=== PATIENT | female | born 1930 | race Caucasian/White ===

== ENCOUNTER 2018-02-16 12:31 | Outpatient (CLI) | payer MEDICARE ==
[~2018-02-16 12:31] MED LIST: ISOVUE-370 76%-LOCM 1 ML ONE
--- NOTE | 2018-02-16 14:11 | CT ---
CT ABDOMEN AND PELVIS WITHOUT AND WITH CONTRAST: Comparison: 06-13-14 History: Recurrent urinary tract infections. Technique: Multiple contiguous axial images were obtained in a CT of the abdomen and pelvis without a nd with IV contrast. Coronals were performed. Post contrast images were performed in the nephrographi c and expiratory phases. FINDINGS: The patient has bilateral hip prostheses which produce streak artifact limiting evaluation of the pel vis. The urinary bladder can only be partially visualized. Scattered diverticula are seen in the colo n. The small bowel is normal in appearance. No free air, free fluid, or stranding changes are seen in the abdomen or visualized portions of the pelvis. There are scattered calcifications in the liver, likely from prior granulomatous disease. The gallbla dder has been removed. The spleen is absent but there is a mass in the left upper quadrant in the abd omen measuring 2.0 cm in size which likely represents a splenial. The adrenal glands, kidneys, and pancreas are unremarkable. There is a large hiatal hernia. No abdominal or pelvic lymphadenopathy are seen. Atherosclerotic calcifications are seen in the aorta. The visualized portions of both ureters are unr emarkable without filling defects. No hydronephrosis is seen. No calculi are seen in either kidney. There is a small fat containing umbilical hernia. The visualized lung bases are unremarkable. Degener ative changes are seen in the spine. IMPRESSION: 1. No focal abnormality of the kidneys or urinary collecting system. Please note that evaluation of t he urinary bladder is limited given the streak artifact from the bilateral hip prostheses. 2. Diverticulosis. 3. 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 4. Large hiatal hernia. POS: [facility]
== END 2018-02-16 12:32 | disposition home or self-care (01) ==
LOC: BICCT 12:31
PROVIDERS: ATTEND Urology
DX: N39.0 Urinary tract infection, site not specified (principal); K57.30 Diverticulosis of large intestine without perforation or abscess without bleeding; K44.9 Diaphragmatic hernia without obstruction or gangrene; Z90.49 Acquired absence of other specified parts of digestive tract; Z96.641 Presence of right artificial hip joint; Z96.642 Presence of left artificial hip joint
CPT/HCPCS: 36415; 74178; 80048

== ENCOUNTER 2018-05-12 08:52 | Outpatient (CLI) | payer MEDICARE ==
--- NOTE | 2018-05-12 10:31 | ULT ---
ABDOMINAL ULTRASOUND: INDICATION: Abdominal pain with vomiting. HISTORY: Surgical history includes cholecystectomy and splenectomy. COMPARISON: Correlation with CT abdomen 02/16/2018. FINDINGS: A few scattered calcified granuloma in the liver are seen. This is confirmed on recent CT. Liver ot herwise unremarkable. The patient is post cholecystectomy and splenectomy. Common bile duct within normal range measured at 6 mm. Pancreas is obscured. Aorta and IVC are obscured. Both kidneys show mild cortical thinning and increased cortical echogenicity. Small cyst in the righ t renal cortex is identified measuring approximately 1.0 cm. This correlates to the recent CT. IMPRESSION: Unremarkable abdominal ultrasound. POS: [facility]
== END 2018-05-12 08:53 | disposition home or self-care (01) ==
LOC: SCSULT 08:52
PROVIDERS: ATTEND Family Medicine
DX: R11.10 Vomiting, unspecified (principal)
CPT/HCPCS: 76700

== ENCOUNTER 2018-06-30 03:10 | Day surgery (SDC) | payer MEDICARE ==
[2018-06-30] MEDS ORDERED: Ondansetron PF 4 MG/2 ML Vial ONE (03:39)
[2018-06-30 03:44] LABS: #Eosinphils 0.1 thou/uL (0.0-0.7); #Lymphocytes 3.2 thou/uL (1.20-3.40); #Monocytes 1.1 thou/uL (0.11-0.59); #Neutrophils 9.5 thou/uL (1.40-6.50); %Basophils 0.1 % (0.0-1.0); %Eosinophils 0.5 % (0.0-10.0); %Monocytes 7.7 % (0.0-10.0); %Neutrophils 68.7 % (42.0-75.0); Hemoglobin 10.4 g/dL (12.0-16.0); Mean Corpuscular HGB CONC 30.8 g/dL (32.0-36.0); Mean Corpuscular Hemoglobin 28.2 pg (27.0-31.0); Mean Corpuscular Volume 91.5 fL (78.0-98.0); Mean Platelet Volume 8.3 fL (7.4-10.4); Platelet Count 536 thou/uL (130-400); RBC Distribution Width 20.1 % (11.5-14.5); Red Blood Cell (RBC) Count 3.69 mill/uL (4.20-5.40); White Blood Cell (WBC) Count 13.8 thou/uL (4.8-10.8)
[2018-06-30 04:04] LABS: ALT (SGPT) Less than 7 U/L (8-55); AST (SGOT) 10 U/L (5-34); Alkaline Phosphatase 104 U/L (40-150); Anion Gap 16 mmol/L (10-20); BUN (Urea Nitrogen) 24 mg/dL (9.8-20.1); Bilirubin, Total 0.2 mg/dL (0.2-1.2); Calc. Creatinine Clearance 0 mL/min (70-130); Calcium 9.9 mg/dL (7.8-10.44); Carbon Dioxide 24 mmol/L (23-31); Chloride 103 mmol/L (98-107); Estimated GFR-MDRD 61; Glucose 145 mg/dL (83-110); Lipase 45 U/L (8-78); Potassium 4.3 mmol/L (3.5-5.1); Sodium 139 mmol/L (136-145)
[2018-06-30 04:13] LABS: Bilirubin Negative (Negative); Blood, Urine Negative (Negative); Clarity CLEAR (Clear); Glucose, Urine (Dipstick) Negative (Negative); Leukocyte Small (Negative); Nitrite Negative (Negative); Protein, Urine (Dipstick) Trace mg/dL (Neg-Trace); Specific Gravity, Urine 1.023 (1.002-1.036); pH, Urine 6.5 (5.0-9.0)
[2018-06-30 04:15] LABS: Bacteria/HPF None Seen HPF (None Seen); RBC/HPF 0-3 HPF (0-3); Squamous Epithelial 0-3 HPF (0-3)
[2018-06-30 04:22] LABS: Pathc Cast-AUWi Flag 3.94 (0-2.49)
[2018-06-30 04:32] LABS: Hyaline Casts/LPF NONE SEEN LPF (0-3 Hyaline); Other Casts/LPF None Seen LPF (0-3 Hyaline)
[2018-06-30] MEDS ORDERED: Morphine 4 MG/ML VIAL ONE (05:19)
[2018-06-30] MEDS ORDERED: Metoprolol Tartrate 5 MG/5 ML VIAL ONE (06:22)
[2018-06-30] MEDS ORDERED: Digoxin 0.5 MG/2 ML AMP ONE (06:33)
--- NOTE | 2018-06-30 07:13 | CT ---
CT ABDOMEN AND PELVIS WITH IV CONTRAST: Date: 06/30/18 INDICATION: History of right upper quadrant abdominal pain. COMPARISON: Prior dated 06/13/14 and 02/16/18. FINDINGS: There is a large hiatal hernia. There is mild bibasilar atelectasis. There is wall thickening involving the distal gastric antrum and duodenum. There is a small collectio n of gas seen in the anterior wall of the distal gastric antrum on image 19 and 20, series 4. There i s free air within the upper abdomen. There is inflammatory stranding surrounding the distal gastric a ntrum and duodenum. Pancreas appears within normal limits. There is a small splenule seen within the left upper quadrant of the abdomen. The spleen has been surgically removed. Gallbladder is surgically absent. There are numerous calcified granuloma within the liver. The kidneys appear within normal limits. There are moderate vascular calcifications involving the abdominopelvic vasculature. There is extensive colonic diverticulosis of the sigmoid colon and ascending colon. There is a mild a mount of retained stool. There is mild free fluid within the pelvis. Beam scattered artifact from patient's hip prosthesis antonio its image detail of the lower pelvis. There is scattered degenerative and osteoarthritic change. IMPRESSION: 1. Findings suspicious for peptic ulcer disease involving the distal gastric antrum and duodenum wit h a full thickness ulceration involving the anterior gastric antrum and with free air in the upper ab domen consistent with perforation. There is mild free fluid in the pelvis. 2. Postsurgical changes of cholecystectomy and splenectomy. 3. Findings of prior granulomatous disease. 4. Large hiatal hernia. 5. Moderate diverticulosis. 6. Other chronic findings as above. Findings were called to Dr. Benitez at 0455 hours on 06/30/18. CODE CR. POS:
[2018-06-30] MEDS ORDERED: cefOXitin Sodium/Dextrose,Iso 2 GM in Premix Bag 1 BAG IVPB SCH (07:45)
--- NOTE | 2018-06-30 08:27 | HP ---
CHIEF COMPLAINT: Perforated peptic ulcer. HISTORY OF PRESENT ILLNESS: The patient is an 88-year-old female. She is a resident at [facility]. She suffers from advanced dementia. Early this morning, she awoke with severe abdominal pain and was transported here to the emergency room. She underwent laboratory and radiologic evaluation per Dr. Benitez. CT scan of the abdomen revealed not only her large chronic hiatal hernia, but also evidence of a perforated peptic ulcer with free air in the upper abdomen. Laboratory studies revealed a mild leukocytosis with a white blood cell count of 13.8, hemoglobin is 10.4, and platelet count is 536. Chemistry panel reveals normal electrolytes. BUN is slightly elevated at 24, creatinine is normal. Lactate is normal. Liver function tests are normal. The patient seems to be resting comfortably now after having been given a small dose of morphine. While she was here in the emergency room, she flipped into atrial fibrillation with rapid ventricular response and had a heart rate in the 140s. She was given Cardizem with normalization of her heart rate and she appeared to flip back in sinus rhythm. PAST MEDICAL HISTORY: Significant for: 1. 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 2. 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 3. Hypothyroidism. 4. Alzheimer dementia. 5. Glaucoma. 6. Hypertension. 7. Depression. 8. History of osteoarthritis. PAST SURGICAL HISTORY: 1. Bilateral knee replacement. 2. Bilateral hip replacement. 3. Cholecystectomy. 4. Open splenectomy. CURRENT MEDICATIONS: 1. Diltiazem. 2. Ferrous fumarate. 3. Fluoxetine. 4. Latanoprost eyedrops. 5. Megace. 6. MiraLAX. 7. Restoril. 8. Synthroid. ALLERGIES: TO PHENERGAN, CODEINE, AND TRAZODONE. PERSONAL AND SOCIAL HISTORY: She is since 2015. She has 4 children, three of whom are still living and two of her daughters are currently at bedside. She has no history of alcohol or tobacco abuse. REVIEW OF SYSTEMS: Otherwise, unremarkable. FAMILY HISTORY: Noncontributory. PHYSICAL EXAMINATION: GENERAL: She is an elderly white female, resting in bed. She did not aroused per conversation at this time. Her daughters tell me that she has poor hearing and likely could not hear my attempts to converse with her. HEAD, EYES, EARS, NOSE, AND THROAT: Unremarkable. NECK: Supple. LUNGS: Clear to auscultation. CARDIAC: Regular rate and rhythm. ABDOMEN: Diffusely tender with guarding. EXTREMITIES: Unremarkable. ASSESSMENT: The patient with perforated peptic ulcer. She has a do not resuscitate order as discussed with both of her daughters. I discussed options, which include surgical repair of the perforation versus nonoperative observation. They preferred to proceed with surgery at this time. They understand that she is at very high risk patient in light of her age and medical condition. They understand that she may not come off the ventilator after surgery. It is quite likely she will need to be in the intensive care unit. They understand the operation that I have discussed with them and agreed to proceed. Job ID: [id number]
[2018-06-30] MEDS ORDERED: Sodium Chloride 0.9% (PF) 10 ML VIAL FS PRN (09:41)
[2018-06-30] MEDS ORDERED: Pantoprazole 40 MG VIAL IVP SCH ×2 (09:45→12:15)
[2018-06-30] MEDS ORDERED: Fluconazole In NaCl,Iso-Osm 200 MG in Premix Bag 1 BAG IVPB SCH (09:45)
[2018-06-30] MEDS ORDERED: Sodium Chloride 0.9% 1,000 ML IV SCH (09:45)
[2018-06-30] MEDS ORDERED: ISOVUE-370 76%-LOCM 1 ML ONE (11:29)
--- NOTE | 2018-06-30 15:21 | PRG ---
DATE OF SERVICE: 06/30/2018 Ms. Knox was initially taken from the emergency room to the Day Surgery Unit with anticipation of proceeding with surgery. Shortly after her third daughter arrived, her family had second thoughts regarding proceeding with surgery. I had several lengthy conversations with all 3 daughters regarding the possibilities of her care with and without surgery. They all understood clearly that it is impossible to predict exactly what her outcome will be with or without surgery. With surgery, she would have a high risk for mortality and morbidity. She might end up long-term ventilated. Without surgery, there is a good chance that she develop sepsis and . It is possible that she would either way, however. After discussing all possibilities and eventualities, in light of her advanced age, her advanced dementia, and her medical problems and poor quality of life, her daughters all decided that they would rather avoid surgery and have her placed in hospice. She already had a do not resuscitate order as outpatient. She had expressed her dissatisfaction with her life as it is now and they all felt comfortable treating her in a nonoperative fashion. I was very supportive of their decision. At this point, I contacted Dr. Winter of the hospitalist service, who involved with the Palliative Care team. From my understanding, a referral to inpatient hospice was made and the patient was able to be discharged the same day to the inpatient hospice facility. I made it clear that if I maybe of any help in any fashion, I would be happy to do so, if they were to contact me. Job ID: [id number]
== END 2018-06-30 14:42 | disposition hospice, home (50) ==
LOC: ERS 03:10 → SDC 08:08
PROVIDERS: ATTEND Specialist
DX: K27.5 Chronic or unspecified peptic ulcer, site unspecified, with perforation (principal); K44.9 Diaphragmatic hernia without obstruction or gangrene; F02.80 Dementia in other diseases classified elsewhere, unspecified severity, without behavioral disturbance, psychotic disturbance, mood disturbance, and anxiety; G30.9 Alzheimer's disease, unspecified; I48.91 Unspecified atrial fibrillation; E03.9 Hypothyroidism, unspecified; I10 Essential (primary) hypertension; F32.9 Major depressive disorder, single episode, unspecified; M19.90 Unspecified osteoarthritis, unspecified site; Z79.899 Other long term (current) drug therapy; Z88.5 Allergy status to narcotic agent; Z88.8 Allergy status to other drugs, medicaments and biological substances
CPT/HCPCS: 36415; 51701; 74177; 80053; 81003; 81015; 83605; 83690; 84484; 85025; 93005; 96361; 96374; 96375; A4353; C9113; J0694; J1160; J1450; J2270; J2405; Q9966